=== PATIENT | male | born 1980 | race African-American/Black ===

== ENCOUNTER 2017-06-19 07:42 | Emergency (ER) | payer OTHER ==
[2017-06-19 09:25] LABS: ADD MAN DIFF? NO
[2017-06-19 09:37] LABS: WHITE BLOOD COUNT 4.9 10^3/ul (4.8-10.8)
[2017-06-19 09:37] LABS: BASOPHIL # 0.1 10^3/ul (0.0-0.1); EOSINOPHILS # 0.2 10^3/ul (0.0-0.5); EOSINOPHILS % 3.3 % (0.0-7.0); HEMATOCRIT 42.4 % (42.0-52.0); HEMOGLOBIN 13.6 g/dl (14.0-18.0); LYMPHOCYTES # 1.1 10^3/ul (0.8-2.9); LYMPHOCYTES % 22.5 % (15.0-51.0); MEAN CORPUSCULAR HEMOGLOBIN 22.3 pg (29.0-33.0); MEAN CORPUSCULAR HGB CONC 32.1 g/dl (32.0-37.0); MEAN CORPUSCULAR VOLUME 69.4 fl (82.0-101.0); MEAN PLATELET VOLUME 9.5 fl (7.4-10.4); MONOCYTE # 0.6 10^3/ul (0.3-0.9); MONOCYTES % 11.9 % (0.0-11.0); NEUTROPHILS % 61.1 % (39.0-77.0); NUCLEATED RED BLOOD CELLS% 0.6 /100WBC (0.0-0.0); PLATELET COUNT 264 10^3/UL (140-415); RED BLOOD COUNT 6.11 10^6/ul (4.70-6.10); RED CELL DISTRIBUTION WIDTH 16.8 % (11.5-14.5)
[2017-06-19 10:28] LABS: ALANINE AMINOTRANSFERASE 43 IU/L (13-69); ALBUMIN 4.6 g/dl (3.3-4.9); ALBUMIN/GLOBULIN RATIO 1.39; ALKALINE PHOSPHATASE 63 IU/L (42-121); ANION GAP 19 (8-16); ASPARTATE AMINO TRANSFERASE 26 IU/L (15-46); BLOOD UREA NITROGEN 10 mg/dl (7-20); CALCIUM 9.3 mg/dl (8.4-10.2); CARBON DIOXIDE 28 mmol/L (21-31); CHLORIDE 103 mmol/L (97-110); CREATININE 1.22 mg/dl (0.61-1.24); GLUCOSE 94 mg/dl (70-220); LIPASE 42 U/L (23-300); POTASSIUM 4.5 mmol/L (3.5-5.1); SODIUM 145 mmol/L (135-144); TOTAL PROTEIN 7.9 g/dl (6.1-8.1)
== END 2017-06-19 12:00 | disposition home or self-care (01) ==
LOC: E/R 07:42
DX: K92.2 Gastrointestinal hemorrhage, unspecified (principal)
CPT/HCPCS: 36415; 80053; 83690; 85025; 99283

== ENCOUNTER 2017-12-29 10:13 | Emergency (ER) | payer OTHER ==
[2017-12-29] MEDS: ONDANSETRON (ODT) 4 MG TAB ODT (10:35)
[2017-12-29] MEDS: KETOROLAC 60 MG INJ IM ×2 (10:36→10:39)
[2017-12-29] MEDS: IBUPROFEN 800 MG TAB PO (10:45)
== END 2017-12-29 11:32 | disposition home or self-care (01) ==
LOC: FTE 10:13
DX: J32.9 Chronic sinusitis, unspecified (principal)
CPT/HCPCS: 70450; 96372; 99285-25